=== PATIENT | male | born 1955 | race Two or more races ===

== ENCOUNTER 2018-06-30 21:26 | Emergency (ER) | payer SELFPAY ==
[~2018-06-30] VITALS: Ht 162.6 cm; Wt 84.0 kg
[2018-06-30 22:00] VITALS: BP 142/83
== END 2018-07-01 01:06 | disposition home or self-care (01) ==
LOC: ER 21:26
DX: S01.512A Laceration without foreign body of oral cavity, initial encounter (principal); I11.9 Hypertensive heart disease without heart failure; E78.00 Pure hypercholesterolemia, unspecified; Z98.61 Coronary angioplasty status; Z98.890 Other specified postprocedural states; W45.8XXA Other foreign body or object entering through skin, initial encounter; Y93.89 Activity, other specified; Y92.89 Other specified places as the place of occurrence of the external cause; Y99.8 Other external cause status
CPT/HCPCS: 99281